=== PATIENT | female | born 1970 | race Caucasian/White ===

== ENCOUNTER 2016-04-29 21:31 | Inpatient (IN) | payer OTHER ==
[~2016-04-29] VITALS: Ht 157.5 cm; Wt 79.9 kg
[~2016-04-29 21:31] MED LIST: IBUPROFEN200 M1 PO; MULTIPLE VITAMIN PO; NORCO1 TA1 PO; TYLENOL325 MG PO; VISTARIL25 MG PO
--- NOTE | 2016-04-30 | DIAGNOSTIC IMAGING REPORT ---
PROCEDURE: CT ABD/PELVIS WITH CONTRAST INDICATION: Left abdominal pain. History of diverticulitis (scheduled for a sigmoid colectomy am, 04/30/2016). TECHNIQUE: 125 ml of Isovue 300 were injected intravenously and axial images were obtained of the entire abdomen and pelvis with sagittal and coronal reformations. COMPARISON: Compared CT abdomen and pelvis on 03/18/2016. FINDINGS: ABDOMEN: Moderate fluid throughout the colon. Small bowel pattern is normal. Appendix is not clearly identified. Gallbladder, liver, spleen, pancreas, kidneys, and aorta are normal. There is diastases of the lower rectus abdominis muscle with herniation of intra- abdominal lipomatous tissue. No evidence of bowel herniation. PELVIS: There are moderate to marked inflammatory changes of a 12-cm segment of the mid sigmoid colon superimposed on moderate diverticulosis. This is associated with localized air perforation of the proximal colon which tracks into the mesentery. No evidence of fluid collection or abscess. superimposed on moderate diverticulitis. There is moderate fluid in the rectum. Uterus and adnexal structures are normal. No evidence of free fluid. IMPRESSION: 1. Moderate to marked acute diverticulitis the mid sigmoid colon associated with localized air perforation (tracking into the mesentery). No evidence of abscess. 2. Moderate fluid throughout the colon and rectum most consistent with ingested material (rather than colitis). 3. Otherwise negative CT abdomen and pelvis. 4. Diastases of the lower rectus abdominous muscles. 5. Findings discussed with Dr. Tarun Darnell. All CT scans at this facility use dose modulation, iterative reconstruction, and/or weight-based dosing when appropriate to reduce radiation dose to as low as reasonably achievable.
--- NOTE | 2016-04-30 00:42 | ED ORDER SUMMARY ---
..... Patient: JOANNE COYNE OrderSheet [facility] VisitID: [id number] [place] [address] 45y, F Registration Date/Time: 04/29/2016 ORDER SHEET Weight: 51.2 kg (stated) Allergies: No Known Drug Allergy GENERAL ORDERS: CT Abd/Pel w Cont (No) (N/A) Urgent (22:17 04/29/2016 Autumn Gillespie) (Ack 22:19 [employer] ER Tech1) (23:48 CHaghilary ER Metal Cnc Operator) CBC w Diff Urgent (22:18 04/29/2016 Autumn Gillespie) (Ack 22:19 [employer] ER Tech1) (22:47 omanelli R.N.) CMP Urgent (22:18 04/29/2016 Autumn Gillespie) (Ack 22:19 [employer] ER Tech1) (22:47 omanelli R.N.) UA-Culture if indicated Urgent (22:18 04/29/2016 Autumn Gillespie) (Ack 22:19 [employer] ER Tech1) (0:49 JRomanelli R.N.) Lipase Urgent (22:18 04/29/2016 Autumn Gillespie) (Ack 22:19 [employer] ER Tech1) (22:50 JRomanelli R.N.) Pulse oximeter (22:18 04/29/2016 Autumn Gillespie) (22:41 JRomanelli R.N.) CT Abd/Pel w Cont (No) (N/A) Urgent (22:19 04/29/2016 Autumn Gillespie) (Cancelled: Duplicate Order22:20 [employer] ER Tech1) Consult - Surgery (00:11 04/30/2016 Autumn Gillespie) (0:13 Mckayla ER Metal Cnc Operator) NPO (00:25 04/30/2016 Autumn Gillespie) (0:49 Hayden R.N.) MEDICATION ORDERS: IV FLUIDS: IV NS : initial bolus 1000 mL (1000 mL/hr), then none - for X1 (NOW) (22:18 04/29/2016 Autumn Gillespie) (22:41 omanelvia R.N.) Morphine IV 4 mg (once now. May repeat in 30 minutes for pain > 5/10) (22:18 04/29/2016 Autumn Gillespie) (22:50 Hayden R.N.) Zofran IV 4 mg (NOW) (22:18 04/29/2016 Autumn Gillespie) (22:49 Hayden R.N.) IV#2 NS : initial bolus none -, then 125 mL/hr (NOW) (23:18 04/29/2016 Hayden R.N. verbal order read back to Autumn Gillespie) (0:52 Hayden R.N.) Levaquin IV 750 mg/150 mL (NOW) (00:03 04/30/2016 Autumn Gillespie) (3:24 Hayden R.N.) Flagyl IV 500 mg/100mL (NOW) (00:03 04/30/2016 Autumn Gillespie) (0:42 Hayden R.N.) Morphine IV 4 mg (as needed every hour PRN pain > 5/10) (00:42 04/30/2016 Autumn Gillespie) (0:54 omanelvia R.N.) ORDER SHEET NOTES: [Electronically signed by Angelina Obregon R.N. (22:04/30/2016)] [Electronically signed by Tarun Darnell Dr. (21:19 05/01/2016)] [Electronically locked/signed by Angelina Obregon R.N. (22:04/30/2016)]
--- NOTE | 2016-04-30 00:42 | ED CLINICAL REPORT ---
Clinical Report - Physicians/Mid Levels [facility] [address] [place] [address] 04/29/2016 21:31 Patient: JOANNE COYNE Arrived- By private vehicle. Historian- patient. HISTORY OF PRESENT ILLNESS Chief Complaint: ABDOMINAL PAIN. At its maximum, severity described as severe. When seen in the E.D., severity described as severe. Modifying factors- worsened by movement. Relieved by rest. This started chronic but recently worsening for the past several days and is still present and worsening. It was gradual in onset and has been constant but is not gone now. No radiation. The patient has had nausea. No loss of appetite, vomiting or diarrhea. No additional abdominal pain. No recent travel. Similar symptoms previously: None. Recent medical care: Not recently seen/assessed. REVIEW OF SYSTEMS All systems otherwise negative, except as recorded above. PAST HISTORY See nurses notes. Medications: None. Allergies: No Known Drug Allergy. SOCIAL HISTORY Never smoker. No alcohol use or drug use. Is a local resident. FAMILY HISTORY Negative. ADDITIONAL NOTES The nursing notes have been reviewed. PHYSICAL EXAM Vital Signs: 04/29/2016 21:44 BP: 112/85. HR: 88. RR: 18. O2 saturation: 100%. Temp: 98.0 F. Blood pressure normal. Oxygen saturation normal. Appearance: Alert. Oriented X3. No acute distress. Eyes: Pupils equal, round and reactive to light. Eyes normal inspection. ENT: Ears normal. Nose normal. Pharynx normal. Neck: Normal inspection. Neck supple. CVS: Normal heart rate and rhythm. Heart sounds normal. Pulses normal. Respiratory: No respiratory distress. Breath sounds normal. Chest nontender. Abdomen: Soft. Moderate tenderness diffusely. No organomegaly. No mass. Back: Normal inspection. Skin: Skin warm and dry. Normal skin color. No rash. Normal skin turgor. Extremities: Extremities exhibit normal ROM. No lower extremity edema. LABS, X-RAYS, AND EKG Pelvic CT: Diverticulitis with micro perf. no free air. no abscess. Pelvic CT performed with IV contrast. Study type: (abd/pelvis). The study was independently viewed by me, interpreted by the radiologist and discussed with the radiologist. Laboratory Tests: CBC w Diff: (ALMA DELIA: 04/29/2016 22:44) ( MsgRcvd 04/29/2016 22:56) Final results Test Result Flag Units (Reference) WHITE BLOOD COUNT 19.0 H K/uL (4.5-11.5) RED BLOOD COUNT 5.06 M/uL (4.00-5.20) HEMOGLOBIN 15.1 gm/dL (12.0-16.0) HEMATOCRIT 46.0 % (36.0-46.0) MEAN CELL VOLUME 91 fL (80-100) MEAN CORPUSCULAR HGB 30 pg (26-34) MEAN CORPUSCULAR HGB CONC 33 g/dL (31-37) RED CELL DISTRIBUTION WIDTH 12.9 % (11.6-14.8) PLATELET COUNT 255 K/uL (150-400) LYMPH % 5.4 L % (25-40) MONO % 1.2 L % (3-14) GRANULOCYTE % 93.4 H (53-90) CMP: (ALMA DELIA: 04/29/2016 22:44) ( MsgRcvd 04/29/2016 23:03) Final results Test Result Flag Units (Reference) GLUCOSE 134 H mg/dL (70-110) BUN 12 mg/dL (7-18) CREATININE 0.8 mg/dL (0.6-1.3) Estimated GFR >60 mL/min Estimated GFR- >60 mL/min Note: Persistent reduction over 3 months in eGFR<60 mL/min/1.73 m2 defines CKD. Patients with eGFR values>=60 mL/min/1.73 m2 may also have CKD if evidence ofpersistent proteinuria. Additional information may be foundat www.[email or web address].org. SODIUM 140 mmol/L (136-145) POTASSIUM 3.9 mmol/L (3.5-5.1) CHLORIDE 108 H mmol/L (98-107) CARBON DIOXIDE 23 mmol/L (21-32) CALCIUM 8.0 L mg/dL (8.5-10.1) TOTAL PROTEIN 6.8 g/dL (6.4-8.2) ALBUMIN 3.9 g/dL (3.3-5.0) BILIRUBIN, TOTAL 0.7 mg/dL (0.0-1.0) ALKALINE PHOSPHATASE 48 U/L (46-116) AST (SGOT) 14 L U/L (15-37) ALT (SGPT) 24 U/L (12-78) LIPASE 109 U/L (73-393) . PROGRESS AND PROCEDURES Course of Care: The patient is a 45 yo female with past medical history significant for divertiulitis and schedule surgery in the morning presenting for evaluation of abdominal pain. Patient is reporting that she can not keep the pain under control at home. Patient is non-toxic. Will need CT scan for evaluation of micro perforation or abscess formation. Do not feel this is AAA. Patient with similar pain with diverticulitis. Patient is not toxic. Patient agreeable to treatment and plan. Pain medication ordered. Patient requiring additional pain medication on reeval. Work up shows patient with elevated white count and signs of diverticulitis with microperf. Discussed cased with surgery. Abx given. Patient will need to be admitted. Patient NPO No rooms available. Patient will be boarded down here in the emergency department for further care and management. Patient agreeable to plan. Medications for pain given again on reevaluation. In the morning, contacted general surgery. Patient to be admitted and have surgery. Patient non-toxic and in no acute distress. Critical care performed (60 minutes). Time is exclusive of separately billable procedures. Time includes: direct patient care, patient reassessment, coordination of patient care, interpretation of data (laboratory data), review of patient's medical records, medical consultation, family consultation regarding treatment decisions and documentation of patient care. Consult obtained. surgery. Disposition: Admitted to Acute Care. CLINICAL IMPRESSION acute colonic diverticulitis acute leukocytosis acute nausea. (Electronically signed by Tarun Darnell Dr. 05/01/2016 21:19)
--- NOTE | 2016-04-30 00:42 | ED NURSING NOTES ---
Clinical Report - Nurses [facility] [address] [place] [address] 04/29/2016 21:31 Patient: JOANNE COYNE TRIAGE Triage time 21:44 Apr 29 2016. Acuity: LEVEL 3. Chief Complaint: ABDOMINAL PAIN. Alert. No acute distress. (in pain). --21:49 Mima Robledo R.N. 21:44 04/29/16. BP: 112/85. HR: 88. RR: 18. O2 saturation: 100%. Temp: 98.0 F. Pain level now 11/26. --21:49 Mima Robledo R.N. Triage time 21:58 Apr 29 2016. Chief Complaint: ABDOMINAL PAIN, NAUSEA and VOMITING. --22:00 Ranjan Gonzalez R.N. Weight: 51.2 kg stated. Height/Length: 66 inches Per Patient. BMI: 18.2. --21:42 Mima Robledo R.N. Medications None. --21:46 Mima Robledo R.N. Medication/allergy information source: the patient. --21:49 Mima Robledo R.N. Allergies No Known Drug Allergy. --21:46 Mima Robledo R.N. History Arrived by private vehicle. Historian: patient. Accompanied by family. Primary physician (Dr. Quevedo). ( Pt has a PMH of Diverticulitis. Is currently going through a bowel prep for tomorrow Sx of removal of Sigmoid Colon. Pt called Dr. Erickson and let him know that she was having severe cramping and pain. HE suggested to wait 30 mins and see if resolve, if not may have to come into ER for eval.). This started just prior to arrival. She has had nausea. Treatment CLEANER AND TRIMMER: None. PAST MEDICAL HX: Has not received seasonal influenza immunization. SOCIAL HX: Never smoker. No alcohol use or drug use. FALL RISK ASSESSMENT: Fall risk assessment completed. No fall risk identified. NUTRITIONAL RISK ASSESSMENT: The nutritional risk assessment revealed no deficiencies. FUNCTIONAL ASSESSMENT: Functional assessment: no impairments noted. SKIN INTEGRITY ASSESSMENT: Skin integrity risk assessment completed. No skin integrity risk identified. --21:49 Mima Robledo R.N. Arrived by private vehicle. Historian: patient. Accompanied by family and sister. Primary physician (Dheeraj). ( Lower abdominal pain scheduled for sigmoid resection in AM, but took prep and pain started ~ 4 hours ago associated with N/V.). This started today. Onset. (about 4 hours ago). Treatment CLEANER AND TRIMMER: (Surgical prep). --22:00 Ranjan Gonzalez R.N. PROBLEMS: Abdominal Pain. Back Pain. Diverticulitis. Gallbladder Disease. --21:47 Mima Robledo R.N. ADDITIONAL SURGERIES: . Knee Surgery. Tubal Ligation. --21:47 Mima Robledo R.N. Interventions ID band on patient. To room. --21:49 Mima Robledo R.N. PHYSICAL ASSESSMENT Ambulatory to room. GENERAL / NEURO / PSYCH: Alert. Oriented X 4. Appears in pain. HEENT: Mucous membranes are pink. RESPIRATORY: Respirations not labored. CVS: Normal sinus rhythm noted. GI / : Abdominal tenderness in the lower abdomen. SKIN: Skin is warm and dry. --22:01 Ranjan Gonzalez R.N. NURSING PROGRESS NOTES ( pt taken to room 4 by STEFANIE Woodruff.). --21:50 Mima Robledo R.N. Patient gowned. Reassurance given to the patient and patient's family. Patient identifiers checked. Call light placed in reach. Side rails up x 2. Bed placed in lowest position. Brakes of bed on. Patient ready for evaluation- chart flagged and ED physician notified. --22:01 Ranjan Gonzalez R.N. 22:24 04/29/2016 Site #1 started via IV in the left antecubital space with an 20g angiocath, with aseptic technique; one attempt. Blood drawn: rainbow set. Labeled in the presence of the patient and sent to the lab. Saline lock flushed with 10 mL saline. --22:39 Ranjan Gonzalez R.N. 22:30 04/29/2016 Site #2 started via IV in the left forearm with an 20g angiocath, with aseptic technique and good blood return; one attempt. Blood drawn (Unable to draw a blood specimen from this site--lab called). --22:41 Ranjan Gonzalez R.N. 22:36 04/29/2016 Started bag #1 1000 mL IV Fluids IV NS (Saline); at 1000 mL/hr over 60 minute(s) via site #2. Allergies verified and confirmed 5 rights. IV patency established. IV site checked: no pain, redness, or swelling. IV flushed thoroughly pre- and post-medication administration. --22:41 Ranjan Gonzalez R.N. 22:39 04/29/2016 Zofran (Ondansetron HCl) IVP 4 mg given over 2 minute(s) via site #2. Allergies verified and confirmed 5 rights. IV patency established. IV site checked: no pain, redness, or swelling. IV flushed thoroughly pre- and post-medication administration. IVP given by RN. --22:49 Ranjan Gonzalez R.N. 22:45 04/29/2016 Morphine IVP 4 mg given over 2 minute(s) via site #2. Allergies verified, confirmed 5 rights and sedative warning given. IV patency established. IV site checked: no pain, redness, or swelling. IV flushed thoroughly pre- and post-medication administration. IVP given by RN. --22:50 Ranjan Gonzalez R.N. <<STRICKEN ENTRY-- 23:40 04/29/2016 Started bag #1 1000 mL IV Fluids IV#2 NS (Saline); at 125 mL/hr over 8 hour(s) via site #2 via IV pump. Allergies verified and confirmed 5 rights. IV patency established. IV site checked: no pain, redness, or swelling. IV flushed thoroughly pre- and post-medication administration. --00:52 Ranjan Gonzalez R.N. --END STRIKE>> Correction. --03:27 Ranjan Gonzalez R.N. 23:40 04/29/2016 Started bag #2 1000 IV Fluids IV#2 NS (Saline); at 125 mL/hr over 8 hour(s) via site #2 via IV pump. Allergies verified and confirmed 5 rights. IV patency established. IV site checked: no pain, redness, or swelling. IV flushed thoroughly pre- and post-medication administration. --03:27 Ranjan Gonzalez R.N. 23:40 04/29/2016 IV Fluids IV NS Discontinued: bag #1 infused. Total amount infused: 1000 mL. IV patency established. IV site checked: no pain, redness, or swelling. IV flushed thoroughly. --00:50 Ranjan Gonzalez R.N. 00:30 04/30/2016 Morphine IVP 4 mg given over 2 minute(s) via site #2. Allergies verified, confirmed 5 rights and sedative warning given to the patient's family. IV patency established. IV site checked: no pain, redness, or swelling. IV flushed thoroughly pre- and post-medication administration. IVP given by RN. --00:54 Ranjan Gonzalez R.N. 00:42 04/30/2016 Started 500 mg of Flagyl (MetroNIDAZOLE in NaCl) IVPB in bag #1 100 mL; at 100 mL/hr over 60 minute(s) via site #2 via IV pump. Allergies verified and confirmed 5 rights. IV patency established. IV site checked: no pain, redness, or swelling. IV flushed thoroughly pre- and post-medication administration. --00:42 Ranjan Gonzalez R.N. pt resting, no complaints of increased pain. --02:19 Sandy Fofana R.N. 02:25 04/30/16. BP: 118/63. HR: 77. O2 saturation: 97%. Temp: 98.5 F. --02:27 Katie Cardoza 01:45 04/30/2016 Started 750 mg of Levaquin (Levofloxacin) IVPB in bag #1 150 mL; at 50 mL/hr over 90 minute(s) via site #2 via IV pump. Allergies verified and confirmed 5 rights. IV patency established. IV site checked: no pain, redness, or swelling. IV flushed thoroughly pre- and post-medication administration. --03:24 Ranjan Gonzalez R.N. 01:45 04/30/2016 Flagyl IVPB Discontinued: infused. Total amount infused: 100 mL. IV patency established. IV site checked: no pain, redness, or swelling. IV flushed thoroughly. (Flagyl 500 mg). --03:23 Ranjan Gonzalez R.N. 02:40 04/30/2016 Morphine IVP 4 mg given over 2 minute(s) via site #2. Allergies verified, confirmed 5 rights and sedative warning given. IV patency established. IV site checked: no pain, redness, or swelling. IV flushed thoroughly pre- and post-medication administration. IVP given by RN. --03:34 Ranjan Gonzalez R.N. 03:15 04/30/2016 Levaquin IVPB Discontinued: infused. Total amount infused: 150 mL. IV patency established. IV site checked: no pain, redness, or swelling. IV flushed thoroughly. --03:25 Ranjan Gonzalez R.N. 07:06 04/30/16. Care transferred and report received (Ranjan Kunz). --07:06 Angelina Obregon R.N. 04:00 04/30/16. BP: 105/69. HR: 99. RR: 16. O2 saturation: 99% on room air. --07:31 Ranjan Gonzalez R.N. 08:19 04/30/16. BP: 106/67. HR: 103. RR: 17. O2 saturation: 96%. Temp: 98.5 F. Pain level now 5/10. --08:19 Angelina Obregon R.N. 08:19 04/30/16. The patient reports no complaints and she is calm and resting quietly. --08:19 Angelina Obregon R.N. 08:22 04/30/2016 Morphine IVP 4 mg given over 2 minute(s) via site #1. Allergies verified, confirmed 5 rights and sedative warning given to the patient. IV patency established. IV site checked: no pain, redness, or swelling. IV flushed thoroughly pre- and post-medication administration. IVP given by RN. --08:24 Angelina Obregon R.N. DISPOSITION / DISCHARGE 11:04/30/16. Departure time: 1115. Condition at departure: improved and stable. Admitted to Acute Care via Surgery. --11:15 Angelina Obregon R.N. 11:15 04/30/16. BP: 133/72. HR: 92. RR: 17. O2 saturation: 100%. --11:15 Angelina Obregon R.N. Locked/Released at 04/30/2016 22:21 by Angelina Obregon R.N.
--- NOTE | 2016-04-30 00:42 | ED ORDER SUMMARY ---
..... Patient: JOANNE COYNE OrderSheet [facility] VisitID: [id number] [place] [address] 45y, F Registration Date/Time: 04/29/2016 ORDER SHEET Weight: 51.2 kg (stated) Allergies: No Known Drug Allergy GENERAL ORDERS: CT Abd/Pel w Cont (No) (N/A) Urgent (22:17 04/29/2016 Autumn Gillespie) (Ack 22:19 [employer] ER Tech1) (23:48 CHaghilary ER Electromechanical Technician) CBC w Diff Urgent (22:18 04/29/2016 Autumn Gillespie) (Ack 22:19 [employer] ER Tech1) (22:47 omanelli R.N.) CMP Urgent (22:18 04/29/2016 Autumn Gillespie) (Ack 22:19 [employer] ER Tech1) (22:47 omanelli R.N.) UA-Culture if indicated Urgent (22:18 04/29/2016 Autumn Gillespie) (Ack 22:19 [employer] ER Tech1) (0:49 JRomanelli R.N.) Lipase Urgent (22:18 04/29/2016 Autumn Gillespie) (Ack 22:19 [employer] ER Tech1) (22:50 JRomanelli R.N.) Pulse oximeter (22:18 04/29/2016 Autumn Gillespie) (22:41 JRomanelli R.N.) CT Abd/Pel w Cont (No) (N/A) Urgent (22:19 04/29/2016 Autumn Gillespie) (Cancelled: Duplicate Order22:20 [employer] ER Tech1) Consult - Surgery (00:11 04/30/2016 Autumn Gillespie) (0:13 Mckayla ER Electromechanical Technician) NPO (00:25 04/30/2016 Autumn Gillespie) (0:49 Hayden R.N.) MEDICATION ORDERS: IV FLUIDS: IV NS : initial bolus 1000 mL (1000 mL/hr), then none - for X1 (NOW) (22:18 04/29/2016 Autumn Gillespie) (22:41 omanelvia R.N.) Morphine IV 4 mg (once now. May repeat in 30 minutes for pain > 5/10) (22:18 04/29/2016 Autumn Gillespie) (22:50 Hayden R.N.) Zofran IV 4 mg (NOW) (22:18 04/29/2016 Autumn Gillespie) (22:49 Hayden R.N.) IV#2 NS : initial bolus none -, then 125 mL/hr (NOW) (23:18 04/29/2016 Hayden R.N. verbal order read back to Autumn Gillespie) (0:52 Hayden R.N.) Levaquin IV 750 mg/150 mL (NOW) (00:03 04/30/2016 Autumn Gillespie) (3:24 Hayden R.N.) Flagyl IV 500 mg/100mL (NOW) (00:03 04/30/2016 Autumn Gillespie) (0:42 Hayden R.N.) Morphine IV 4 mg (as needed every hour PRN pain > 5/10) (00:42 04/30/2016 Autumn Gillespie) (0:54 omanelvia R.N.) ORDER SHEET NOTES: [Electronically signed by Angelina Obregon R.N. (22:04/30/2016)] [Electronically signed by Tarun Darnell Dr. (21:19 05/01/2016)] [Electronically locked/signed by Angelina Obregon R.N. (22:04/30/2016)]
[2016-04-30 13:50] VITALS: BP 114/79
--- NOTE | 2016-04-30 15:19 | OPERATIVE REPORT ---
DATE OF SURGERY: 04/30/2016 SURGEON: Brett Esqueda MD DISTRIBUTION FIELD ENGINEER: Karen Robles III, MD PREOPERATIVE DIAGNOSIS: 1. Acute and chronic diverticulitis - perforated POSTOPERATIVE DIAGNOSIS: 1. Acute and chronic diverticulitis - perforated PROCEDURE PERFORMED: 1. Laparoscopic sigmoid colectomy ANESTHESIA: General. INDICATIONS: The patient is a 45-year-old woman with multiple attacks of diverticulitis. The most recent one was about a month ago, and she was found to have some localized air pockets, indicating a walled off perforation. She was treated with antibiotics, but the pain failed to fully resolve, and she was given a week of oral antibiotics prior to scheduling of this operation. She had increasing pain last night and presented to the emergency room for early admission, but did not have free air. SURGICAL TECHNIQUE: The patient was taken to the operating room, where a general anesthetic was administered and the patient prepped and draped in the usual sterile fashion in lithotomy position. The patient received IV antibiotics. She had undergone a mechanical bowel preparation. A local anesthetic of 0.5% Marcaine with epinephrine was used at each incision site. An intraumbilical incision was made and a Veress needle was used to insufflate the abdominal cavity. A 10 mm trocar was passed. Visualization demonstrated multiple adhesions to the lower midline with a diastasis in the rectus muscle. Eventually 3 additional trocars were placed in their usual locations. These were used to take down the omental adhesions to free up access into the pelvis. The patient was placed in Trendelenburg position, and the patient was found to have a hard, indurated area of the sigmoid colon that was tightly adhesed laterally and partly adhesed to the ovary as well as the small bowel. The area just above the indurated area where the sigmoid became soft again was mobilized and divided using an Endo-ROBSON stapling device. The dissection was carried inferiorly using the Thunderbeat device, taking care to stay directly on the wall of the colon. The adherent small bowel was detached using a cold scissors, staying toward the colon side. The ovary was taken down also, and a tedious dissection was done through the very indurated mesocolon and mesorectum, down into the low anterior region, where a soft rectum was once again encountered. The Endo-ROBSON was used to divide the upper rectum. The umbilical trocar site was converted to a short counter incision. This was used to extract the colon specimen, which was found to be a segment of hard, indurated colon consistent with the area associated with perforation and diverticulitis. The end of the descending colon, which had already been mobilized to allow it to reach the pelvis in a tension-free fashion, was drawn up through this. A pursestring device was used to place a 4-0 Maxon pursestring. A 31 mm EEA anastomotic device was selected, and the anvil was tied into the descending colon and returned to the abdominal cavity. The umbilical incision was closed with running #1 PDS suture. The abdomen was re-insufflated. The rectum was irrigated, since there was still some residual stool in this area, until it was totally clean, following which an anastomosis was carried out using the EEA device. This proceeded without incident, and there were 2 complete donuts. Additionally, air insufflation under irrigation fluid revealed no evidence of air leak. The operative field was completely hemostatic. Free fluid was suctioned away, and the skin sites were closed with either interrupted or running subcuticular 4-0 Vicryl suture. A single 4-0 Vicryl was placed in the fascia at the right lower quadrant tangential 12 mm trocar site. Steri-Strips and dressings were placed. The patient left the operating room in good condition. No intraoperative complications were encountered.
[2016-04-30 16:06] VITALS: BP 115/76
[2016-04-30 16:20] VITALS: BP 108/67
[2016-04-30 16:35] VITALS: BP 120/71
[2016-04-30 17:05] VITALS: BP 114/75
[2016-04-30 22:52] VITALS: BP 110/59
[2016-05-01 02:24] VITALS: BP 106/60
[2016-05-01 06:33] VITALS: BP 114/64
[2016-05-01 10:41] VITALS: BP 105/65
[2016-05-01 14:50] VITALS: BP 105/66
[2016-05-01 18:50] VITALS: BP 105/61
--- NOTE | 2016-05-01 21:19 | ED DISCHARGE INSTRUCTIONS ---
Patient: JOANNE COYNE General Instructions [facility] VisitID: [id number] [address] [place] [address] 45y, F Registration Date/Time: 04/29/2016 acute colonic diverticulitis acute leukocytosis acute nausea. (Electronically signed by Tarun Darnell Dr. 05/01/2016 21:19)
--- NOTE | 2016-05-01 21:19 | ED MED RECONCILIATION SUMMARY ---
Patient: JOANNE COYNE Medication Reconciliation Report [facility] VisitID: [id number] [address] [place] [address] 45y, F Registration Date/Time: 04/29/2016 Weight: 51.2 kg Height/Length: 66 in. BMI: 18.2 ALLERGIES: No Known Drug Allergy The patient's Home Medications are listed below: NONE. The source(s) of the original Home Medication information: patient The following Medications were given to the patient in the Emergency Department: IV NS IV Fluids bolus 0, then 1000 mL/hr, administered: 04/29/2016 10:36:00 PM Zofran [IVP] IVP 4 mg, administered: 04/29/2016 10:39:00 PM Morphine [IVP] IVP 4 mg, administered: 04/29/2016 10:45:00 PM Flagyl [IVPB] IVPB bolus 0, then 500 mg 100 mL/hr, administered: 04/30/2016 12:42:00 AM IV#2 NS IV Fluids bolus 0, then 125 mL/hr, administered: 04/29/2016 11:40:00 PM Morphine [IVP] IVP 4 mg, administered: 04/30/2016 12:30:00 AM Levaquin [IVPB] IVPB bolus 0, then 750 mg 50 mL/hr, administered: 04/30/2016 1:45:00 AM Morphine [IVP] IVP 4 mg, administered: 04/30/2016 2:40:00 AM Morphine [IVP] IVP 4 mg, administered: 04/30/2016 8:22:00 AM The following Medications were prescribed to the patient: None.
--- NOTE | 2016-05-01 21:19 | ED MAR SUMMARY ---
..... Medication Administration Record [facility] [address] [place] [address] Patient: JOANNE COYNE Visit ID: [id number] 45y, F Weight: 51.2 kg Height/Length: 66 in BMI: 18.2 ALLERGIES: No Known Drug Allergy Start 22:36 04/29/2016 Ranjan Gonzalez R.N., Stop 23:40 04/29/2016 Ranjan Gonzalez R.N. Medication Administered: IV NS (SALINE), Dose: IV Fluids over 60 minute(s), Rate: 1000 mL/hr, Dispensed: 1000 mL bag, Site: #2 left forearm. Medication Ordered: IV NS : initial bolus 1000 mL (1000 mL/hr), then none - for X1 (NOW). Given 22:39 04/29/2016 Ranjan Gonzalez R.N. Medication Administered: ZOFRAN [IVP] (ONDANSETRON HCL), Dose: 4 mg IVP over 2 minute(s), Site: #2 left forearm. Medication Ordered: Zofran IV 4 mg (NOW). Given 22:45 04/29/2016 Ranjan Gonzalez R.N. Medication Administered: MORPHINE [IVP], Dose: 4 mg IVP over 2 minute(s), Site: #2 left forearm. Medication Ordered: Morphine IV 4 mg (once now. May repeat in 30 minutes for pain > 5/10). Start 23:40 04/29/2016 Ranjan Gonzalez R.N. Medication Administered: IV#2 NS (SALINE), Dose: IV Fluids over 8 hour(s), Rate: 125 mL/hr, Dispensed: 1000 mL bag, Site: #2 left forearm. Medication Ordered: IV#2 NS : initial bolus none -, then 125 mL/hr (NOW). Given 00:30 04/30/2016 Ranjan Gonzalez R.N. Medication Administered: MORPHINE [IVP], Dose: 4 mg IVP over 2 minute(s), Site: #2 left forearm. Medication Ordered: Morphine IV 4 mg (as needed every hour PRN pain > 5/10). Start 00:42 04/30/2016 Ranjan Gonzalez R.N., Stop 01:45 04/30/2016 Ranjan Gonzalez R.N. Medication Administered: FLAGYL [IVPB] (METRONIDAZOLE IN NACL), Dose: 500 mg IVPB over 60 minute(s), Rate: 100 mL/hr, Dispensed: 100 mL bag, Site: #2 left forearm. Medication Ordered: Flagyl IV 500 mg/100mL (NOW). Start 01:45 04/30/2016 Ranjan Gonzalez R.N., Stop 03:15 04/30/2016 Ranjan Gonzalez R.N. Medication Administered: LEVAQUIN [IVPB] (LEVOFLOXACIN), Dose: 750 mg IVPB over 90 minute(s), Rate: 50 mL/hr, Dispensed: 150 mL bag, Site: #2 left forearm. Medication Ordered: Levaquin IV 750 mg/150 mL (NOW). Given 02:40 04/30/2016 Ranjan Gonzalez R.N. Medication Administered: MORPHINE [IVP], Dose: 4 mg IVP over 2 minute(s), Site: #2 left forearm. Medication Ordered: Morphine IV 4 mg (as needed every hour PRN pain > 5/10). Given 08:22 04/30/2016 Angelina Obregon RMilo Medication Administered: MORPHINE [IVP], Dose: 4 mg IVP over 2 minute(s), Site: #1 left AC. Medication Ordered: Morphine IV 4 mg (as needed every hour PRN pain > 5/10).
--- NOTE | 2016-05-01 21:19 | ED DISCHARGE INSTRUCTIONS ---
Patient: JOANNE COYNE General Instructions [facility] VisitID: [id number] [address] [place] [address] 45y, F Registration Date/Time: 04/29/2016 acute colonic diverticulitis acute leukocytosis acute nausea. (Electronically signed by Tarun Darnell Dr. 05/01/2016 21:19)
--- NOTE | 2016-05-01 21:19 | ED MED RECONCILIATION SUMMARY ---
Patient: JOANNE COYNE Medication Reconciliation Report [facility] VisitID: [id number] [address] [place] [address] 45y, F Registration Date/Time: 04/29/2016 Weight: 51.2 kg Height/Length: 66 in. BMI: 18.2 ALLERGIES: No Known Drug Allergy The patient's Home Medications are listed below: NONE. The source(s) of the original Home Medication information: patient The following Medications were given to the patient in the Emergency Department: IV NS IV Fluids bolus 0, then 1000 mL/hr, administered: 04/29/2016 10:36:00 PM Zofran [IVP] IVP 4 mg, administered: 04/29/2016 10:39:00 PM Morphine [IVP] IVP 4 mg, administered: 04/29/2016 10:45:00 PM Flagyl [IVPB] IVPB bolus 0, then 500 mg 100 mL/hr, administered: 04/30/2016 12:42:00 AM IV#2 NS IV Fluids bolus 0, then 125 mL/hr, administered: 04/29/2016 11:40:00 PM Morphine [IVP] IVP 4 mg, administered: 04/30/2016 12:30:00 AM Levaquin [IVPB] IVPB bolus 0, then 750 mg 50 mL/hr, administered: 04/30/2016 1:45:00 AM Morphine [IVP] IVP 4 mg, administered: 04/30/2016 2:40:00 AM Morphine [IVP] IVP 4 mg, administered: 04/30/2016 8:22:00 AM The following Medications were prescribed to the patient: None.
--- NOTE | 2016-05-01 21:19 | ED MAR SUMMARY ---
..... Medication Administration Record [facility] [address] [place] [address] Patient: JOANNE COYNE Visit ID: [id number] 45y, F Weight: 51.2 kg Height/Length: 66 in BMI: 18.2 ALLERGIES: No Known Drug Allergy Start 22:36 04/29/2016 Ranjan Gonzalez R.N., Stop 23:40 04/29/2016 Ranjan Gonzalez R.N. Medication Administered: IV NS (SALINE), Dose: IV Fluids over 60 minute(s), Rate: 1000 mL/hr, Dispensed: 1000 mL bag, Site: #2 left forearm. Medication Ordered: IV NS : initial bolus 1000 mL (1000 mL/hr), then none - for X1 (NOW). Given 22:39 04/29/2016 Ranjan Gonzalez R.N. Medication Administered: ZOFRAN [IVP] (ONDANSETRON HCL), Dose: 4 mg IVP over 2 minute(s), Site: #2 left forearm. Medication Ordered: Zofran IV 4 mg (NOW). Given 22:45 04/29/2016 Ranjan Gonzalez R.N. Medication Administered: MORPHINE [IVP], Dose: 4 mg IVP over 2 minute(s), Site: #2 left forearm. Medication Ordered: Morphine IV 4 mg (once now. May repeat in 30 minutes for pain > 5/10). Start 23:40 04/29/2016 Ranjan Gonzalez R.N. Medication Administered: IV#2 NS (SALINE), Dose: IV Fluids over 8 hour(s), Rate: 125 mL/hr, Dispensed: 1000 mL bag, Site: #2 left forearm. Medication Ordered: IV#2 NS : initial bolus none -, then 125 mL/hr (NOW). Given 00:30 04/30/2016 Ranjan Gonzalez R.N. Medication Administered: MORPHINE [IVP], Dose: 4 mg IVP over 2 minute(s), Site: #2 left forearm. Medication Ordered: Morphine IV 4 mg (as needed every hour PRN pain > 5/10). Start 00:42 04/30/2016 Ranjan Gonzalez R.N., Stop 01:45 04/30/2016 Ranjan Gonzalez R.N. Medication Administered: FLAGYL [IVPB] (METRONIDAZOLE IN NACL), Dose: 500 mg IVPB over 60 minute(s), Rate: 100 mL/hr, Dispensed: 100 mL bag, Site: #2 left forearm. Medication Ordered: Flagyl IV 500 mg/100mL (NOW). Start 01:45 04/30/2016 Ranjan Gonzalez R.N., Stop 03:15 04/30/2016 Ranjan Gonzalez R.N. Medication Administered: LEVAQUIN [IVPB] (LEVOFLOXACIN), Dose: 750 mg IVPB over 90 minute(s), Rate: 50 mL/hr, Dispensed: 150 mL bag, Site: #2 left forearm. Medication Ordered: Levaquin IV 750 mg/150 mL (NOW). Given 02:40 04/30/2016 Ranjan Gonzalez R.N. Medication Administered: MORPHINE [IVP], Dose: 4 mg IVP over 2 minute(s), Site: #2 left forearm. Medication Ordered: Morphine IV 4 mg (as needed every hour PRN pain > 5/10). Given 08:22 04/30/2016 Angelina Obregon RMilo Medication Administered: MORPHINE [IVP], Dose: 4 mg IVP over 2 minute(s), Site: #1 left AC. Medication Ordered: Morphine IV 4 mg (as needed every hour PRN pain > 5/10).
[2016-05-01 22:05] VITALS: BP 122/78
[2016-05-02 02:08] VITALS: BP 115/64
[2016-05-02 07:09] VITALS: BP 108/71
[2016-05-02 11:33] VITALS: BP 113/67
--- NOTE | 2016-05-02 11:35 | DIAGNOSTIC IMAGING REPORT ---
PROCEDURE: XR CHEST 1 VIEW INDICATION: PICC PLACEMENT TECHNIQUE: Portable AP view 11:23 a.m. COMPARISON: Chest x-ray 10/04/2015 FINDINGS: Interval placement of a right PICC line with the tip at the junction of the brachiocephalic vein and SVC. Minor left basilar scarring/atelectasis. Heart and mediastinum are normal. Thorax is normal. IMPRESSION: 1. Right PICC line in satisfactory position 2. Results discussed with respiratory (Ilya).
[2016-05-02 14:53] VITALS: BP 117/77
[2016-05-02 18:26] VITALS: BP 116/70
[2016-05-02 23:00] VITALS: BP 109/60
[2016-05-03 02:10] VITALS: BP 106/60
[2016-05-03 06:23] VITALS: BP 111/66
[2016-05-03 10:40] VITALS: BP 116/76
[2016-05-03 14:30] VITALS: BP 116/80
[2016-05-03 18:13] VITALS: BP 135/80
[2016-05-03 22:34] VITALS: BP 122/80
[2016-05-04 02:19] VITALS: BP 114/71
[2016-05-04 07:13] VITALS: BP 128/66
[2016-05-04] MEDS ORDERED: NORCO1 TA1 PO (08:44)
--- NOTE | 2016-05-04 08:45 | Provider's Discharge Care Plan ---
Problem, Goal, Plan Problem List 1. Diverticulitis large intestine
--- NOTE | 2016-05-04 08:45 | Provider's Discharge Care Plan ---
Problem, Goal, Plan Problem List 1. Diverticulitis large intestine
--- NOTE | 2016-05-04 09:23 | DISCHARGE SUMMARY ---
ADMIT DATE: 04/30/2016 DISCHARGE DATE: 05/04/2016 DISCHARGE DIAGNOSES: 1. Perforated diverticulitis HOSPITAL COURSE: The patient was admitted to the hospital for continuing symptoms of diverticulitis. She had a CT scan demonstrating a pocket of contained free air in the mesenteries. She was taken to surgery after undergoing an outpatient bowel prep on 2016. A laparoscopic sigmoid resection was carried out. Findings included a very indurated and stuck and sigmoid colon, but it was successfully extricated and a stapled anastomosis was carried out. Postoperatively, the patient recovered on the lorenz. She was able to do well without a nasogastric tube and by postoperative day number 3 was passing gas. A clear liquid diet was started and she was advanced to a regular diet on postoperative day number 4 and discharged DISCHARGE INSTRUCTIONS/MEDICATIONS: Follow up in the office in approximately 1 week.
== END 2016-05-04 13:00 | disposition home or self-care (01) | DRG 330 ==
LOC: ED SRH 21:31 → SDC SRH 04-30 11:43 → TRANS SRH 04-30 11:45 → SDC SRH 04-30 15:50 → ACUTE2 SRH 04-30 16:15
PROVIDERS: ADMIT Surgery
PROC: 0DN84ZZ Release Small Intestine, Percutaneous Endoscopic Approach (ICD-10-PCS; principal; 2016-04-30 13:00)
PROC: 0DBN0ZZ Excision of Sigmoid Colon, Open Approach (ICD-10-PCS; principal; 2016-04-30 13:00)
PROC: 02HV33Z Insertion of Infusion Device into Superior Vena Cava, Percutaneous Approach (ICD-10-PCS; 2016-05-02)
DX: K57.20 Diverticulitis of large intestine with perforation and abscess without bleeding (principal); R11.0 Nausea
CPT/HCPCS: 50002; 60001; 70002; 80102; 80212; 80248; 80852; 82320; 82669; 82723; 82794; 82897; 83475; 83587; 83919; 83982; 84038; 84041; 84344; 84531; 85569; 90004; 90074; 90100; 91162; 91163; 92235; 95059